=== PATIENT | male | born 1975 | race Caucasian/White ===

== ENCOUNTER 2016-12-01 08:41 | Emergency (ER) | payer MEDICAID, OTHER ==
[~2016-12-01] VITALS: Ht 165.1 cm; Wt 87.0 kg
[2016-12-01 08:43] VITALS: Ht 165.1 cm; Wt 87.0 kg
[2016-12-01] MEDS ORDERED: ONDANSETRON (ODT) 4 MG TAB ODT STA (08:58)
[2016-12-01] MEDS ORDERED: FAMOTIDINE 20 MG TAB PO ONE (09:00)
[2016-12-01] MEDS ORDERED: LIDOCAINE/MYLANTA 40 ML BTL PO ONE (09:00)
[2016-12-01] MEDS ORDERED: HYDROCODONE/APAP (5/325) TAB PO ONE (09:00)
--- NOTE | 2016-12-01 09:58 | RADRPT ---
PROCEDURE: XR Ankle. CLINICAL INDICATION: Ankle pain TECHNIQUE: 3 views of the right ankle were performed. COMPARISON: Radiographs of the right foot performed same day FINDINGS: There is no acute fracture. Alignment is normal. Joint spaces are preserved. There is mild bimalleolar soft tissue swelling. IMPRESSION: 1. No radiographic evidence of acute osseous abnormality. 2. Mild bimalleolar soft tissue swelling. RPTAT: [facility] .Salvador Castle MD, MD Date Time Electronically viewed and signed by .Salvador Castle MD, on 12/01/2016 09:58 .K/
--- NOTE | 2016-12-01 09:59 | RADRPT ---
PROCEDURE: XR Foot. CLINICAL INDICATION: Right foot pain, fall TECHNIQUE: 3 views of the right foot are available for review. COMPARISON: Radiographs of the right ankle same day FINDINGS: There is no acute fracture. Alignment is normal. Joint spaces are preserved. There is mild bimalleolar soft tissue swelling and there is a 4 mm linear metallic foreign body with in the plantar soft tissues of the great toe. IMPRESSION: 1. No radiographic evidence of acute osseous abnormality. 2. Mild bimalleolar soft tissue swelling and a 4 mm linear metallic foreign body within the plantar soft tissues of the great toe. RPTAT: UU .Salvador Castle MD, MD Date Time Electronically viewed and signed by .Salvador Castle MD, on 12/01/2016 09:59 .K/
[2016-12-01] MEDS ORDERED: IBUP-1542 PO (10:09)
[2016-12-01] MEDS ORDERED: HYDR-906 PO (10:09)
--- NOTE | 2016-12-01 10:35 | ERD ---
ER Documentation Chief Complaint Date/Time DATE: 12/01/16 TIME: 10:33 Chief Complaint RIGHT FOOT PAIN,S/P FALL HPI This is a 41-year-old male presents to the ER with right foot pain after he slipped and fell onto a pool yesterday. Patient states that he was trying to help a neighbor catch her dog when he fell. Patient is not complaining of right heel pain that radiates up into his right ankle. He denies any numbness and tingling of the foot. He denies any fevers or chills. There is no redness or swelling of the foot either. ROS 12 point review of systems was done, all negative except per HPI. Medications Home Meds Active Scripts Hydrocodone/Acetaminophen (Doss 5-325 Tablet) 1 Each Tablet, 1 TAB PO Q6H Y for PAIN, #20 TAB Prov:SUZETTE SHORT 12/01/16 Ibuprofen* (Motrin*) 600 Mg Tab, 600 MG PO Q6, #30 TAB Prov:SUZETTE SHORT 12/01/16 PMhx/Soc Medical and Surgical Hx: pt denies Medical Hx, pt denies Surgical Hx Physical Exam Vitals Vital Signs Date Time Temp Pulse Resp B/P Pulse Ox O2 Delivery O2 Flow Rate FiO2 12/01/16 08:43 98.0 87 18 150/80 98 Physical Exam GENERAL: The patient is well developed and appropriate for usual state of health , in no apparent distress. HEENT: Atraumatic. CHEST: Clear to auscultation bilaterally. There are no rales, wheezes or rhonchi. EXTREMITIES: Right foot: Patient is tender to palpation to the right heel and to both lateral and medial ankle malleolus. +2 pulses normal strength and sensation NEURO: Alert and oriented. Results 24 hrs Current Medications Medications (Trade) Dose Ordered Sig/Miguel Route PRN Reason Start Time Stop Time Status Last Admin Dose Admin Acetaminophen/ Hydrocodone Bitart (Doss (5/325)) 1 tab ONCE ONCE PO 12/01/16 09:00 12/01/16 09:01 12/01/16 09:19 Ondansetron HCl (Zofran Odt) 4 mg ONCE STAT ODT 12/01/16 08:58 12/01/16 09:01 DC 12/01/16 09:16 Famotidine (Pepcid) 20 mg ONCE ONCE PO 12/01/16 09:00 12/01/16 09:01 12/01/16 09:16 Miscellaneous Medication (Gi Cocktail (2)) 40 ml ONCE ONCE PO 12/01/16 09:00 12/01/16 09:01 12/01/16 09:16 Procedures/MDM This is a 41-year-old male presents to the ER after he fell and hurt his foot yesterday. At this time there is no evidence of fractures or dislocations. There was a 4 mm foreign body in his right great toe. Patient was not complaining of right great toe pain and does not recall any trauma to the area. Patient has normal range of motion of his foot and is neurovascularly intact. He will be sent home with Doss and ibuprofen. He needs to follow-up with his primary care doctor within 1-2 days or return to ER sooner if symptoms worsen. My medical decision making was discussed with the patient, he understands and agrees with plan. Departure Diagnosis: Primary Impression: Foot pain Condition: Stable Patient Instructions: Foreign Body, Soft Tissue [Not Removed], Sprain Foot Additional Instructions: Llame al doctor MAANA y adolfo thaddeus CORRINA PARA DENTRO DE 1-2 RANKIN.Dgale a la secretaria que nosotros le instruimos hacer esta corrina.Avise o llame si adame condicin se empeora antes de la corrina. Regresa aqui si peor o no mejor. SUZETTE SHORT Dec 01, 2016 10:35
== END 2016-12-01 10:35 | disposition home or self-care (01) ==
LOC: FTE 08:41
DX: S99.921A Unspecified injury of right foot, initial encounter (principal); W01.0XXA Fall on same level from slipping, tripping and stumbling without subsequent striking against object, initial encounter; Y92.9 Unspecified place or not applicable
CPT/HCPCS: 73610; 73630; Z7502; Z7610